=== PATIENT | male | born 1980 | race Two or more races ===

== ENCOUNTER 2022-03-24 02:53 | Emergency (ER) | payer SELFPAY ==
--- NOTE | 2022-03-24 03:21 | NUR ---
After drug room clerk placed arm band on patient wrist by admitting window, patient was observe by [facility] magui bravo walking away from hospital.
--- NOTE | 2022-03-24 04:11 | NUR ---
Patient was called but not present. PATIENT WAS NOT TRIAGED OR SEEN BY [facility].
== END 2022-03-24 04:12 | disposition left against medical advice (07) ==
LOC: ER 03:11
DX: Z53.21 Procedure and treatment not carried out due to patient leaving prior to being seen by health care provider (principal)